=== PATIENT | male | born 1960 | race Caucasian/White ===

== ENCOUNTER → 2021-03-15 | Outpatient (CLI) | payer OTHER ==
[~2021-03-15] MED LIST: ANAPROX DS550 MG PO; KEFLEX500 MG PO
== END | disposition home or self-care (01) ==
LOC: RAD 10:19
PROVIDERS: ATTEND Preventive Medicine Occupational Medicine
DX: M25.511 Pain in right shoulder (principal)

== ENCOUNTER 2022-03-26 01:21 | Emergency (ER) | payer OTHER ==
[~2022-03-26] VITALS: Ht 182.8 cm; Wt 77.1 kg
[2022-03-26 02:39] LABS: BASO # 0.1 10*3/uL (0.0-0.1); BASO % 0.3 % (0.0-1.0); EOS # 0.1 10*3/uL (0.0-0.4); EOS % 0.9 % (1.0-4.0); HEMATOCRIT 30.6 % (42.0-52.0); LYMPH # 0.8 10*3/uL (1.3-4.4); LYMPH % 5.2 % (27.0-41.0); MEAN CELL VOLUME 83.4 fl (80.0-94.0); MEAN CORPUSCULAR HGB CONC 32.4 g/dl (33.0-37.0); MEAN PLATELET VOLUME 10.8 fl (9.6-12.3); MONO # 1.1 10*3/uL (0.1-1.0); MONO % 7.1 % (3.0-9.0); NEUT # 13.1 10*3/uL (2.3-7.9); PLATELET COUNT AUTOMATED 423 10*3/uL (130-400); RED BLOOD COUNT 3.67 10*6/uL (4.50-5.90); RED CELL DISTRI WIDTH 14.6 % (0-14.5); WHITE BLOOD COUNT 15.3 10*3/uL (4.8-10.8)
[2022-03-26 02:57] LABS: CREATININE 2.17 mg/dL (0.70-1.30); POTASSIUM 5.1 mmol/L (3.5-5.1); TOTAL PROTEIN 7.6 gm/dL (6.4-8.2)
[2022-03-26] MEDS ORDERED: CEFDINIR300 MG PO (05:11)
[2022-03-26 05:41] LABS: BILIRUBIN Negative (Negative); BLOOD 2+ (Negative); CLARITY Turbid (Clear); COLOR Yellow (Yellow); GLUCOSE Negative (Negative); KETONE Negative (Negative); LEUKO ESTERASE 3+ (Negative); NITRITE Negative (Negative); PH 5.5 (4.5-8.0); SPECIFIC GRAVITY 1.015 (1.001-1.030); UROBILINOGEN 0.2 E.U./dl (0.0-1.0)
[2022-03-26 05:56] LABS: WBC TNTC wbc/hpf (0-5)
[2022-03-26 05:57] LABS: BACTERIA 1+
[2022-03-26 05:58] LABS: RBC 0-2 rbc/hpf (0-2)
== END 2022-03-26 05:11 | disposition left against medical advice (07) ==
LOC: ED 01:21
PROVIDERS: Emergency Medicine
DX: N17.9 Acute kidney failure, unspecified (principal); R50.9 Fever, unspecified; R41.82 Altered mental status, unspecified; W18.39XA Other fall on same level, initial encounter; Y93.89 Activity, other specified; Y92.89 Other specified places as the place of occurrence of the external cause; Y99.8 Other external cause status